=== PATIENT | female | born 1970 | race Caucasian/White ===

== ENCOUNTER 2017-04-29 20:03 | Emergency (ER) | payer OTHER ==
[2017-04-29 20:17] VITALS: BP 121/61; BMI 37.8
--- NOTE | 2017-04-29 20:40 | RAD ---
EXAM: Right ankle x-ray INDICATION: Fall, ankle pain COMPARISION: No priors for comparison TECHNIQUE: AP, lateral, and oblique, three views FINDINGS: There is a minimally displaced transverse fracture extending through the distal tip of the lateral m alleolus. There is adjacent soft tissue swelling. No other fracture identified. No dislocation. Join t spaces are preserved. No joint effusion. IMPRESSION: There is a minimally displaced transverse fracture extending through the distal tip of the lateral m alleolus. Reported By:
--- NOTE | 2017-04-29 20:49 | DR.EXTPAIN ---
HPI - Time seen Time seen: 20:30 - PCP Primary Care Physician: AJITH - HPI Comment HPI Comment: PATIENT HEARD POPPING SOUND. DIFFICULTY BEARING WEIGHT. - Complaint/Symptoms Chief Complaint Doctor Comments: PATIENT STEP ON SIGN MAKER THEN UNEVEN FLOOR./ INJURED RT ANKLE. Chief Complaint:: " I STEPPED OFF THE SIGN MAKER AND STEPPED ON SOME UNEVEN DIRT AND I HEARD MY ANKLE POP." (RIGHT ANKLE) Self Treatment fo Chief Complaint: FLEXIRIL 10MG @1800 - Nurses notes reviewed Nurses Notes Review: Yes - Source History Provided: Patient - Mode of arrival Mode of Arrival: Ambulatory - Timing Onset of Chief Complaint: 04/29/17 - Context History of: None - Associated signs and symptoms Associated Signs and Symptoms: Pain, Swelling, Bruising PMH - PMH Past Medical History: Yes Past Medical History: Anxiety, Depression, Diabetes, Headaches Past Surgical History: Yes Surgical History: NURSE INFORMATICIST Surgery, Hysterectomy, Tonsillectomy - Family History History of Family Medical Conditions: Yes Family Medical History: Coronary Artery Disease, Hypertension - Social History Type of Tobacco Use: Cigarettes Alcohol Use: None Do you use any recreational Drugs:: No Lives Where: Home - infectious screening Have you traveled outside the country in the last 6 months?: No ROS - Review of Systems Constitutional: No Symptoms Reported Eyes: No Symptoms Reported ENTM: No Symptoms Reported Respiratoy: No Symptoms Reported Cardiovascular: No Symptoms Reported Gastrointestinal/Abdominal: No Symptoms Reported Genitourinary: No Symptoms Reported Neurological: No Symptoms Reported Musculoskeletal: Right, Ankle Integumentary: No Symptoms Reported Hematologic/Lymphatic: No Symptoms Reported Endocrine: No Symptoms Reported All Other Systems: Reviewed and Negative PE - Vital Signs Vitals: Temperature 98.3 F Pulse Rate 87 Respiratory Rate 18 Blood Pressure 121/61 O2 Sat by Pulse Oximetry 98 - General Limitations: No Limitations General Appearance: Alert - Head Head Exam: Normal Inspection - Eyes Eye exam: Normal Appearance - ENT ENT Exam: Normal External Ear Exam - Neck Neck Exam: Trachea Midline - Chest Chest Inspection: Symmetric Chest Wall Rise - Respiratory Respiratory Exam: Bilateral Clear to Auscultation - Cardiovascular Cardiovascular Exam: Regular Rate, Normal Rhythm, Normal Heart Sounds - Extremities Extremities Exam: Tenderness (RT ANKLE TENDER.), Joint Swelling (LATERAL MALLEOLUS TENDER.). negative: Full ROM (DECREASE ROM RT ANKLE.) - Lower Extremities Neurovascular/Tendon Exam: Normal Capillary Refill Gait Exam: Observed & Limited by Pain - Back Back Exam: Normal Inspection - Neurological Neurological Exam: Alert, Oriented X3 - Psychiatric Psychiatric Exam: Anxious - Skin Skin Exam: Erythema MDM - Differential Diagnosis Differential Diagnosis: Contusion, Fracture, Sprain Course - Treatment Treatment: SEE ORDERS. OCL SPLINT APPLIED IN ED. - Education/Counseling Education/Counseling: Patient, Family, Education Educated On: Treatment, Diagnosis, Needs for Follow Up ROR - XRAY XRAY Interpreted by: Radiologist XRAY Findings: REPORT DISCUSS WITH PATIENT AND FAMILY. - Diagnosis Discharge Problem: Ankle fracture Qualifiers: Encounter type: initial encounter Fracture type: closed Laterality: right Qualified Code(s): S82.891A - Other fracture of right lower leg, initial encounter for closed fracture - Discharge Plan Disposition: HOME, SELF-CARE Condition: Stable Prescriptions: Acetaminophen with Codeine [Tylenol/Codeine #3 300-30 mg] 1 tab PO Q4-6H PRN 15 Days PRN Reason: Pain - Follow ups/Referrals Follow ups/Referrals: N[facility],None [Primary Care Provider] - 3 days JOSELINE CROWDER [CONSULTING PHYSICIAN] - 05/01/17 - Instructions Instructions: Ankle Fracture, [id number] Additional Instructions: RETURN TO ED IF WORSE.
[2017-04-29] MEDS ORDERED: TYLENOL #3 TAB (W/CODEINE) PO ONE ×2 (20:53→20:57)
== END 2017-04-29 21:31 | disposition home or self-care (01) ==
LOC: ER 20:03
DX: S82.891A Other fracture of right lower leg, initial encounter for closed fracture (principal); Y33.XXXA Other specified events, undetermined intent, initial encounter; Y92.9 Unspecified place or not applicable
CPT/HCPCS: 29515; 73610; 99283

== ENCOUNTER → 2018-02-12 | Outpatient (CLI) | payer OTHER ==
--- NOTE | 2018-02-12 10:18 | MG ---
HISTORY: SCREENING Comparison: 11/30/2016 FINDINGS: Bilateral CC and MLO projections of the right and left breast were obtained. Mostly fat replaced fib roglandular tissue is seen to be present. No significant architectural distortion, mass or clustered microcalcifications can be observed to suggest malignancy. No skin thickening or nipple retraction is appreciated. No pathological lymphadenopathy can be identified. IMPRESSION: NO RADIOGRAPHIC EVIDENCE OF MALIGNANCY. ACR CATEGORY: 1 - NEGATIVE EXAM. FOLLOW-UP EXAM 1 YEAR. Diagnostic CAD was utilized and reviewed. * 0 (ZERO) - ASSESSMENT INCOMPLETE; ADDITIONAL IMAGING IS NEEDED. * 1/1 (ONE) - NEGATIVE. * 2/II (TWO) - BENIGN FINDINGS. * 3/III (THREE) - PROBABLY BENIGN FINDING; SHORT INTERVAL FOLLOW-UP SUGGESTED. * 4/IV (FOUR) - SUSPICIOUS ABNORMALITY; BIOPSY SHOULD BE CONSIDERED. * 5/V - HIGHLY SUSPICIOUS OF MALIGNANCY; BIOPSY SHOULD BE PERFORMED. A NEGATIVE X-RAY REPORT SHOULD NOT DELAY BIOPSY IF A DOMINANT OR CLINICALLY SUSPICIOUS MASS IS PRESENT; 4 TO 8 PERCENT OF CANCERS ARE NOT IDENTIFIED BY X-RAY. A NEGA TIVE REPORT MAY REINFORCE THE CLINICAL IMPRESSION. ADENOSIS AND DENSE BREASTS MAY OBSCURE AN UNDERLY ING NEOPLASM. Reported By:
== END ==
LOC: RAD 09:18
PROVIDERS: ATTEND Obstetrics & Gynecology
DX: Z12.31 Encounter for screening mammogram for malignant neoplasm of breast (principal)
CPT/HCPCS: 77067